=== PATIENT | female | born 2005 | race Hispanic/Latino ===

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

== ENCOUNTER 2025-06-06 10:55 | Outpatient (CLI) | payer BC, OTHER | END 2025-06-06 10:56 | disposition home or self-care (01) | LOC: ULT 10:55 | PROVIDERS: ATTEND Family Medicine | DX: O09.92 Supervision of high risk pregnancy, unspecified, second trimester (principal); Z3A.24 24 weeks gestation of pregnancy | CPT/HCPCS: 76805 ==